=== PATIENT | female | born 1980 | race Caucasian/White ===

== ENCOUNTER 2018-05-17 15:07 | Observation (INO) ==
[2018-05-17] MEDS ORDERED: SODIUM CHLORIDE 0.9% 500 ML IV STA (15:43)
[2018-05-17] MEDS ORDERED: ONDANSETRON 4 MG/2 ML VIAL IV STA (15:43)
[2018-05-17 16:05] LABS: Basophils % 0.4 % (0.0-0.8); Eosinophils # 0.1 10*3/uL (0.0-0.87); Eosinophils % 0.8 % (0.00-10.9); Hematocrit 39.1 VOL% (35.7-47.0); Immature Granulocytes % 0.3 %; Immature Granulocytes Absolute 0.03 #; Lymphocytes # 3.2 10*3/uL (1.4-4.0); Lymphocytes % 32.5 % (21.3-54.2); Mean Corpuscular HGB Conc 33.2 GM/DL (32-36); Mean Corpuscular Hemoglobin 30 PG (27-34); Mean Corpuscular Volume 89.7 FL (87-102); Mean Platelet Volume 10.2 FL (9.6-12.0); Monocytes # 0.6 10*3/uL (0.11-0.8); Monocytes % 5.8 % (1.7-12.7); Neutrophils % 60.2 % (38.7-73.9); Platelet Count 322 T/CUMM (130-400); Red Blood Count 4.36 MC/CUMM (3.8-5.5)
[2018-05-17 16:20] LABS: INR 0.9; PT Patient Result 9.9 SECS
[2018-05-17 16:30] LABS: Alanine Aminotransferase 23 U/L (13-56); Alkaline Phosphatase 78 U/L (45-117); Aspartate Amino Transferase 16 U/L (0-37); Bilirubin,Total < 0.39 MG/DL (0.2-1.0); Blood Urea Nitrogen 8 MG/DL (7-18); Calcium 9.1 MG/DL (8.5-10.1); Glucose 89 MG/DL (74-106); Osmolality,Calculated 269.8 MOS/KG (273-304); Potassium 3.4 MMOL/L (3.5-5.1); Sodium 137 MMOL/L (136-145); Total Protein 8.3 G/DL (6.4-8.3); Troponin I < 0.015 NG/ML (0.00-0.045)
[2018-05-17 17:15] LABS: Sedimentation Rate-Westergren 20 MM/HR (0-20)
[2018-05-17 17:24] LABS: Apearance,Urine CLEAR (Clear); Bilirubin,Urine Negative (Negative); Blood, Urine Negative (Negative); Glucose,Urine (UA) Negative (Negative); Ketones,Urine Negative (Negative); Nitrite,Urine Negative (Negative); Protein,Urine Negative; RBC,Urine <1 /HPF (0-4); Urine Color Straw (Yellow); Urine Specific Gravity 1.005 (1.001-1.035); Urine Urobilinogen < 2.0 EU/DL (0.2-1.0)
[2018-05-17] MEDS ORDERED: ONDANSETRON 4 MG/2 ML VIAL IV PRN (18:38)
[2018-05-17] MEDS ORDERED: LACTULOSE 20 GM/30 ML UDCUP PO PRN (18:38)
[2018-05-17] MEDS ORDERED: DOCUSATE SODIUM 100 MG CAPSULE PO PRN (18:38)
[2018-05-17] MEDS ORDERED: ACETAMINOPHEN 325 MG TABLET PO PRN (18:38)
[2018-05-17] MEDS ORDERED: ENOXAPARIN 40 MG/0.4 ML SYRINGE SUBCUT SCH (21:00)
[2018-05-17] MEDS: SODIUM CHLORIDE 0.45% 1,000 ML IV SCH (21:18)
[2018-05-18 03:37] LABS: Basophils % 0.4 % (0.0-0.8); Eosinophils # 0.1 10*3/uL (0.0-0.87); Hematocrit 32.3 VOL% (35.7-47.0); Hemoglobin 10.4 GM/DL (12.0-16.0); Immature Granulocytes % 0.5 %; Immature Granulocytes Absolute 0.05 #; Lymphocytes # 3.4 10*3/uL (1.4-4.0); Lymphocytes % 30.5 % (21.3-54.2); Mean Corpuscular HGB Conc 32.2 GM/DL (32-36); Mean Corpuscular Hemoglobin 30 PG (27-34); Mean Corpuscular Volume 92.6 FL (87-102); Mean Platelet Volume 10.5 FL (9.6-12.0); Monocytes # 0.7 10*3/uL (0.11-0.8); Monocytes % 5.9 % (1.7-12.7); Neutrophils # 6.8 10*3/uL (1.4-7.4); Neutrophils % 61.7 % (38.7-73.9); Platelet Count 269 T/CUMM (130-400); Red Blood Count 3.49 MC/CUMM (3.8-5.5); Red Cell Distribution Width 14.2 % (9.3-17.3)
[2018-05-18 03:50] LABS: Alanine Aminotransferase 20 U/L (13-56); Albumin 3.1 G/DL (3.4-5.0); Alkaline Phosphatase 62 U/L (45-117); Aspartate Amino Transferase 10 U/L (0-37); Bilirubin,Total < 0.39 MG/DL (0.2-1.0); Blood Urea Nitrogen 10 MG/DL (7-18); Calcium 7.8 MG/DL (8.5-10.1); Glucose 90 MG/DL (74-106); Osmolality,Calculated 277.4 MOS/KG (273-304); Potassium 3.6 MMOL/L (3.5-5.1); Sodium 140 MMOL/L (136-145); Total Protein 6.4 G/DL (6.4-8.3)
[2018-05-18] MEDS: SODIUM CHLORIDE 0.45% 1,000 ML IV SCH (06:33)
[2018-05-18 08:00] LABS: Risk Ratio 3.98
[2018-05-18] MEDS ORDERED: PANTOPRAZOLE 40 MG TABLET PO SCH (09:00)
[2018-05-18] MEDS ORDERED: MELOXICAM 7.5 MG TABLET PO SCH (09:00)
[2018-05-18] MEDS ORDERED: KETOROLAC 30 MG/1 ML VIAL IV ONE (10:02)
[2018-05-18] MEDS ORDERED: CYCLOBENZAPRINE 10 MG TABLET PO ONE (10:05)
[2018-05-18] MEDS ORDERED: ACETAMINOPHEN 325 MG TABLET PO SCH (15:07)
[2018-05-18] MEDS ORDERED: GABAPENTIN 100 MG CAPSULE PO SCH (15:07)
[2018-05-18] MEDS ORDERED: NAPROXEN 500 MG TABLET PO ONE (15:07)
[2018-05-18 15:41] VITALS: BP 100/60
[2018-05-19] MEDS ORDERED: ASPIRIN EC 81 MG TABLET PO SCH (09:00)
== END 2018-05-18 17:25 | disposition home or self-care (01) ==
LOC: N.ED 15:07 → N.EDINP 15:07 → SUATTDRO 18:38 → N.TELEN 19:35
PROVIDERS: ADMIT Internal Medicine; ATTEND Family Medicine

== ENCOUNTER 2021-04-01 15:19 | Observation (INO) ==
[2021-04-01 16:29] LABS: Basophils % 0.6 % (0.0-0.8); Eosinophils # 0.1 10*3/uL (0.0-0.87); Eosinophils % 1.1 % (0.00-10.9); Hematocrit 39.8 VOL% (35.7-47.0); Hemoglobin 12.8 GM/DL (12.0-16.0); Immature Granulocytes % 0.6 %; Immature Granulocytes Absolute 0.03 #; Lymphocytes # 2.5 10*3/uL (1.4-4.0); Lymphocytes % 45.2 % (21.3-54.2); Mean Corpuscular HGB Conc 32.2 GM/DL (32-36); Mean Corpuscular Volume 92.1 FL (87-102); Mean Platelet Volume 10.1 FL (9.6-12.0); Monocytes % 5.2 % (1.7-12.7); Neutrophils % 47.3 % (38.7-73.9); Platelet Count 301 T/CUMM (130-400); Red Blood Count 4.32 MC/CUMM (3.8-5.5); Red Cell Distribution Width 13.4 % (9.3-17.3); White Blood Count 5.4 T/CUMM (4-12)
[2021-04-01 17:05] LABS: Albumin 4.3 G/DL (3.4-5.0); Bilirubin,Total 0.4 MG/DL (0.20-1.00); Calcium 9.2 MG/DL (8.5-10.1); Osmolality,Calculated 276.4 MOS/KG (273-304); Potassium 3.9 MMOL/L (3.5-5.1); Total Protein 8.1 G/DL (6.4-8.2)
[2021-04-01] MEDS ORDERED: SODIUM CHLORIDE 0.9% 1,000 ML IV STA (17:35)
[2021-04-01] MEDS ORDERED: KETOROLAC 30 MG/1 ML VIAL IM STA (18:27)
[2021-04-01] MEDS ORDERED: CYCLOBENZAPRINE 10 MG TABLET PO STA (18:28)
[2021-04-01] MEDS ORDERED: KETOROLAC 30 MG/1 ML VIAL IV STA (18:52)
[2021-04-01] MEDS ORDERED: GLUCAGON 1 MG VIAL IM PRN (23:28)
[2021-04-01] MEDS ORDERED: LABETALOL 20 MG/4 ML SYRINGE IV PRN (23:28)
[2021-04-01] MEDS ORDERED: DEXTROSE 50% 25 GM/50 ML VIAL IV PRN (23:28)
[2021-04-01] MEDS ORDERED: ACETAMINOPHEN 325 MG TABLET PO PRN (23:39)
[2021-04-02] MEDS: ENOXAPARIN 40 MG/0.4 ML SYRINGE SUBCUT SCH (00:46)
[2021-04-02] MEDS: SODIUM CHLORIDE 0.9% 1,000 ML IV SCH ×3 (00:47→21:41)
[2021-04-02 04:26] LABS: Basophils % 0.4 % (0.0-0.8); Eosinophils # 0.1 10*3/uL (0.0-0.87); Eosinophils % 1.1 % (0.00-10.9); Hemoglobin 11.4 GM/DL (12.0-16.0); Immature Granulocytes % 0.4 %; Immature Granulocytes Absolute 0.03 #; Lymphocytes # 3.5 10*3/uL (1.4-4.0); Mean Corpuscular HGB Conc 31.7 GM/DL (32-36); Mean Corpuscular Volume 92.3 FL (87-102); Mean Platelet Volume 10.5 FL (9.6-12.0); Monocytes % 5.6 % (1.7-12.7); Neutrophils % 48.5 % (38.7-73.9); Platelet Count 275 T/CUMM (130-400); Red Cell Distribution Width 13.8 % (9.3-17.3)
[2021-04-02 05:07] LABS: Calcium 8.5 MG/DL (8.5-10.1); Osmolality,Calculated 278.3 MOS/KG (273-304); Potassium 3.7 MMOL/L (3.5-5.1); Risk Ratio 5.47; Thyroid Stimulating Hormone 0.981 uIU/ml (0.358-3.74); VLDL Cholesterol 57.2 MG/DL
[2021-04-02] MEDS: PANTOPRAZOLE 40 MG TABLET PO SCH (09:29)
[2021-04-02] MEDS: ASPIRIN 325 MG TABLET PO SCH (09:29)
[2021-04-02 21:40] LABS: Barbiturates Screen,Urine Negative (Negative); Benzodiazepines Screen,Urine Negative (Negative); Cannabinoid Screen,Urine Positive (Negative); Opiate Screen,Urine Positive (Negative); Phencyclidine Screen,Urine Negative (Negative)
[2021-04-03] MEDS: ENOXAPARIN 40 MG/0.4 ML SYRINGE SUBCUT SCH (00:35)
[2021-04-03] MEDS: SODIUM CHLORIDE 0.9% 1,000 ML IV SCH ×2 (05:16→16:06)
[2021-04-03] MEDS: ASPIRIN 325 MG TABLET PO SCH (09:24)
[2021-04-03] MEDS: PANTOPRAZOLE 40 MG TABLET PO SCH (09:24)
[2021-04-03] MEDS ORDERED: CYANOCOBALAMIN 1000 MCG/1 ML VIAL SUBCUT ONE (10:14)
[2021-04-03] MEDS: ONDANSETRON 4 MG/2 ML VIAL IV PRN ×2 (10:27→19:12)
[2021-04-03] MEDS ORDERED: ACETAMINOPHEN 500 MG TABLET PO PRN (11:31)
[2021-04-03] MEDS: DULoxetine 30 MG CAPSULE PO SCH (21:03)
[2021-04-03] MEDS: CELECOXIB 200 MG CAPSULE PO SCH (21:03)
[2021-04-04] MEDS: SODIUM CHLORIDE 0.9% 1,000 ML IV SCH ×4 (00:20→21:52)
[2021-04-04] MEDS: ENOXAPARIN 40 MG/0.4 ML SYRINGE SUBCUT SCH ×2 (00:20→21:02)
[2021-04-04] MEDS: ONDANSETRON 4 MG/2 ML VIAL IV PRN ×4 (01:30→14:19)
[2021-04-04] MEDS: PANTOPRAZOLE 40 MG TABLET PO SCH (08:46)
[2021-04-04] MEDS ORDERED: tiZANidine 4 MG TABLET PO SCH (09:00)
[2021-04-04] MEDS ORDERED: ONDANSETRON 4 MG/2 ML VIAL IV ONE (09:00)
[2021-04-04] MEDS: DULoxetine 30 MG CAPSULE PO SCH ×2 (09:53→21:02)
[2021-04-04] MEDS: CELECOXIB 200 MG CAPSULE PO SCH (09:53)
[2021-04-04] MEDS ORDERED: ALUMINUM/MAGNES/SIMETH MAX STR 30 ML UDCUP PO ONE (16:39)
[2021-04-04] MEDS ORDERED: KETOROLAC 15 MG/1 ML VIAL IV PRN (18:48)
[2021-04-04] MEDS ORDERED: PROMETHAZINE INJ 12.5 MG in SODIUM CHLORIDE 0.9% 50 ML IV ONE (21:00)
[2021-04-04] MEDS: PANTOPRAZOLE 40 MG VIAL IV SCH (21:02)
[2021-04-05] MEDS: ONDANSETRON 4 MG/2 ML VIAL IV PRN ×3 (04:47→14:29)
[2021-04-05 05:32] LABS: Basophils % 0.4 % (0.0-0.8); Eosinophils % 0.1 % (0.00-10.9); Hematocrit 36.9 VOL% (35.7-47.0); Hemoglobin 11.9 GM/DL (12.0-16.0); Lymphocytes # 2.3 10*3/uL (1.4-4.0); Lymphocytes % 27.6 % (21.3-54.2); Mean Corpuscular HGB Conc 32.2 GM/DL (32-36); Mean Corpuscular Volume 90.7 FL (87-102); Mean Platelet Volume 10.2 FL (9.6-12.0); Monocytes % 4.8 % (1.7-12.7); Neutrophils % 66.9 % (38.7-73.9); Platelet Count 278 T/CUMM (130-400); Red Blood Count 4.07 MC/CUMM (3.8-5.5); Red Cell Distribution Width 13.2 % (9.3-17.3); White Blood Count 8.5 T/CUMM (4-12)
[2021-04-05 05:50] LABS: Calcium 8.6 MG/DL (8.5-10.1); Osmolality,Calculated 278.3 MOS/KG (273-304); Potassium 3.5 MMOL/L (3.5-5.1)
[2021-04-05] MEDS: SODIUM CHLORIDE 0.9% 1,000 ML IV SCH ×2 (08:52→21:25)
[2021-04-05] MEDS: DULoxetine 30 MG CAPSULE PO SCH ×2 (08:53→21:24)
[2021-04-05] MEDS ORDERED: PANTOPRAZOLE 40 MG VIAL IV SCH (09:00)
[2021-04-05] MEDS: PANTOPRAZOLE 40 MG VIAL IV SCH ×2 (09:08→21:24)
[2021-04-05] MEDS ORDERED: PROMETHAZINE INJ 12.5 MG in SODIUM CHLORIDE 0.9% 50 ML IV ONE (19:40)
[2021-04-05] MEDS: ENOXAPARIN 40 MG/0.4 ML SYRINGE SUBCUT SCH (21:24)
[2021-04-06] MEDS: SODIUM CHLORIDE 0.9% 1,000 ML IV SCH (05:02)
[2021-04-06] MEDS: ONDANSETRON 4 MG/2 ML VIAL IV PRN ×2 (05:34→12:01)
[2021-04-06 05:42] VITALS: BP 131/82
[2021-04-06 06:47] LABS: Calcium 8.6 MG/DL (8.5-10.1); Osmolality,Calculated 272.7 MOS/KG (273-304); Potassium 3.4 MMOL/L (3.5-5.1)
[2021-04-06] MEDS: DULoxetine 30 MG CAPSULE PO SCH (08:17)
[2021-04-06] MEDS: PANTOPRAZOLE 40 MG VIAL IV SCH (08:18)
[2021-04-06] MEDS ORDERED: ESTRADIOL 0.1 MG/24 HR TRANSDERM SCH (09:00)
== END 2021-04-06 14:47 | disposition home health service (06) ==
LOC: N.ED 15:19 → N.EDINP 15:19 → SUATTDRO 22:41 → N.EDINP 23:16 → N.TELES 23:37 → SUATTDRO 04-04 12:32
PROVIDERS: ADMIT Internal Medicine; ATTEND Internal Medicine

== ENCOUNTER 2021-10-28 04:12 | Inpatient (IN) ==
[2021-10-28 04:52] LABS: Basophils % 0.2 % (0.0-0.8); Eosinophils % 0.4 % (0.00-10.9); Hematocrit 38.3 VOL% (35.7-47.0); Hemoglobin 12.9 GM/DL (12.0-16.0); Immature Granulocytes % 0.6 %; Immature Granulocytes Absolute 0.05 #; Lymphocytes # 1.4 10*3/uL (1.4-4.0); Lymphocytes % 17.5 % (21.3-54.2); Mean Corpuscular HGB Conc 33.7 GM/DL (32-36); Mean Corpuscular Volume 88.7 FL (87-102); Mean Platelet Volume 9.8 FL (9.6-12.0); Monocytes # 0.8 10*3/uL (0.11-0.8); Monocytes % 9.3 % (1.7-12.7); Platelet Count 340 T/CUMM (130-400); Red Blood Count 4.32 MC/CUMM (3.8-5.5); Red Cell Distribution Width 13.2 % (9.3-17.3)
[2021-10-28] MEDS ORDERED: MORPHINE 2 MG/1 ML SYRINGE IV STA (04:52)
[2021-10-28] MEDS ORDERED: ONDANSETRON 4 MG/2 ML VIAL IV STA (04:52)
[2021-10-28] MEDS ORDERED: ASPIRIN 325 MG TABLET PO STA (04:52)
[2021-10-28] MEDS ORDERED: SODIUM CHLORIDE 0.9% 500 ML IV STA (04:52)
[2021-10-28] MEDS ORDERED: METOPROLOL TARTRATE 50 MG TABLET PO STA (04:53)
[2021-10-28 05:02] LABS: PT Patient Result 10.9 SECS (10.5-12.0); Partial Thromboplastin Time 32.2 SECS (23.8-32.1)
[2021-10-28 05:05] LABS: PT Patient Result 10.8 SECS (10.5-12.0)
[2021-10-28 05:18] LABS: Alanine Aminotransferase 19 U/L (13-56); Alkaline Phosphatase 100 U/L (45-117); Aspartate Amino Transferase 7 U/L (0-37); Bilirubin,Total < 0.39 MG/DL (0.20-1.00); Blood Urea Nitrogen 4 MG/DL (7-18); Calcium 9.5 MG/DL (8.5-10.1); Carbon Dioxide 23 MMOL/L (21-32); Chloride 107 MMOL/L (98-107); Glucose 115 MG/DL (74-106); Osmolality,Calculated 274.5 MOS/KG (273-304); Potassium 3.2 MMOL/L (3.5-5.1); Sodium 139 MMOL/L (136-145); Total Protein 8.5 G/DL (6.4-8.2)
[2021-10-28] MEDS ORDERED: POTASSIUM CHLORIDE 20 MEQ TABLET PO STA (05:21)
[2021-10-28 06:45] LABS: Risk Ratio 5.95
[2021-10-28] MEDS: SODIUM CHLORIDE 0.9% 1,000 ML IV SCH ×2 (07:00→20:48)
[2021-10-28 07:02] LABS: Bacteria,Urine Moderate /HPF (Few); RBC,Urine 1 /HPF (0-4); Squamous Epithelial Cell,Urine Occasional /HPF (0-10)
[2021-10-28 07:03] LABS: Bilirubin,Urine Negative (Negative); Blood, Urine Negative (Negative); Glucose,Urine (UA) Negative (Negative); Ketones,Urine Negative (Negative); Nitrite,Urine Negative (Negative); Protein,Urine Negative (Negative); Urine Appearance Clear (Clear); Urine Color Yellow (Yellow); Urine Specific Gravity < 1.005 (1.001-1.035); Urine Urobilinogen 0.2 eU/dL (<2.0)
[2021-10-28 07:52] LABS: Barbiturates Screen,Urine Negative (Negative); Benzodiazepines Screen,Urine Negative (Negative); Cannabinoid Screen,Urine Negative (Negative); Opiate Screen,Urine Positive (Negative); Phencyclidine Screen,Urine Negative (Negative)
[2021-10-28] MEDS ORDERED: METOPROLOL SUCCINATE XL 50 MG TABLET PO SCH (09:00)
[2021-10-28] MEDS: PANTOPRAZOLE 40 MG TABLET PO SCH (09:18)
[2021-10-28] MEDS: MORPHINE 2 MG/1 ML SYRINGE IV PRN (11:23)
[2021-10-28] MEDS: ONDANSETRON 4 MG/2 ML VIAL IV PRN (11:23)
[2021-10-28] MEDS: PROMETHAZINE 25 MG TABLET PO PRN (14:37)
[2021-10-28] MEDS: ATORVASTATIN 40 MG TABLET PO SCH (20:38)
[2021-10-28] MEDS: ACETAMINOPHEN 325 MG TABLET PO PRN (20:41)
[2021-10-29] MEDS: ONDANSETRON 4 MG/2 ML VIAL IV PRN ×4 (03:00→19:59)
[2021-10-29] MEDS ORDERED: LEVOFLOXACIN INJ 500 MG/100 ML PREMIX IV SCH (04:00)
[2021-10-29] MEDS: ACETAMINOPHEN 325 MG TABLET PO PRN ×2 (04:15→21:19)
[2021-10-29 05:03] LABS: Alanine Aminotransferase 17 U/L (13-56); Albumin 3.2 G/DL (3.4-5.0); Alkaline Phosphatase 79 U/L (45-117); Aspartate Amino Transferase 11 U/L (0-37); Bilirubin,Total < 0.39 MG/DL (0.20-1.00); Blood Urea Nitrogen 3 MG/DL (7-18); Calcium 8.3 MG/DL (8.5-10.1); Carbon Dioxide 22 MMOL/L (21-32); Chloride 111 MMOL/L (98-107); Glucose 97 MG/DL (74-106); Osmolality,Calculated 279.1 MOS/KG (273-304); Potassium 3.5 MMOL/L (3.5-5.1); Sodium 142 MMOL/L (136-145); Total Protein 6.9 G/DL (6.4-8.2)
[2021-10-29] MEDS ORDERED: IBUPROFEN 400 MG TABLET PO PRN (06:12)
[2021-10-29] MEDS ORDERED: ENOXAPARIN 40 MG/0.4 ML SYRINGE SUBCUT SCH (07:00)
[2021-10-29 08:06] LABS: Basophils % 0.2 % (0.0-0.8); Immature Granulocytes % 0.6 %; Immature Granulocytes Absolute 0.03 #; Lymphocytes # 1.1 10*3/uL (1.4-4.0); Lymphocytes % 23.2 % (21.3-54.2); Mean Corpuscular HGB Conc 32.7 GM/DL (32-36); Mean Corpuscular Volume 91.2 FL (87-102); Monocytes # 0.4 10*3/uL (0.11-0.8); Monocytes % 8.5 % (1.7-12.7); Neutrophils % 67.5 % (38.7-73.9); Red Blood Count 3.62 MC/CUMM (3.8-5.5); Red Cell Distribution Width 14.1 % (9.3-17.3)
[2021-10-29 08:09] LABS: White Blood Count 4.9 T/CUMM (4-12)
[2021-10-29 08:10] LABS: Hemoglobin 10.8 GM/DL (12.0-16.0); Platelet Count 241 T/CUMM (130-400)
[2021-10-29] MEDS: METOPROLOL SUCCINATE XL 50 MG TABLET PO SCH ×2 (09:01→21:19)
[2021-10-29] MEDS: PANTOPRAZOLE 40 MG TABLET PO SCH (09:01)
[2021-10-29] MEDS: POTASSIUM CHLORIDE 20 MEQ TABLET PO SCH (09:01)
[2021-10-29] MEDS: MORPHINE 2 MG/1 ML SYRINGE IV PRN ×2 (12:40→21:25)
[2021-10-29] MEDS: SODIUM CHLORIDE 0.9% 1,000 ML IV SCH ×2 (12:44→12:45)
[2021-10-29 13:12] LABS: Glucose,CSF 63 MG/DL (40-70)
[2021-10-29] MEDS ORDERED: MELATONIN 3 MG TABLET PO PRN (13:17)
[2021-10-29 13:22] LABS: Appearance,CSF Clear; Red Blood Cell,CSF < 1 C/CUMM; White Blood Cell,CSF 3 C/CUMM
[2021-10-29] MEDS: PROMETHAZINE 25 MG TABLET PO PRN (17:19)
[2021-10-29] MEDS: ASCORBIC ACID 500 MG TABLET PO SCH (21:18)
[2021-10-29] MEDS: ATORVASTATIN 40 MG TABLET PO SCH (21:19)
[2021-10-29] MEDS: FAMOTIDINE 20 MG TABLET PO SCH (21:19)
[2021-10-30] MEDS: MORPHINE 2 MG/1 ML SYRINGE IV PRN ×4 (02:41→23:10)
[2021-10-30] MEDS: ONDANSETRON 4 MG/2 ML VIAL IV PRN ×4 (02:41→23:10)
[2021-10-30] MEDS: SODIUM CHLORIDE 0.9% 1,000 ML IV SCH ×2 (04:37→15:43)
[2021-10-30 06:20] LABS: Basophils % 0.2 % (0.0-0.8); Hematocrit 34.2 VOL% (35.7-47.0); Immature Granulocytes % 0.4 %; Immature Granulocytes Absolute 0.02 #; Lymphocytes # 1.6 10*3/uL (1.4-4.0); Lymphocytes % 34.2 % (21.3-54.2); Mean Corpuscular HGB Conc 32.2 GM/DL (32-36); Mean Corpuscular Volume 93.2 FL (87-102); Mean Platelet Volume 10.3 FL (9.6-12.0); Monocytes # 0.3 10*3/uL (0.11-0.8); Monocytes % 5.4 % (1.7-12.7); Neutrophils % 59.8 % (38.7-73.9); Platelet Count 231 T/CUMM (130-400); Red Blood Count 3.67 MC/CUMM (3.8-5.5); Red Cell Distribution Width 14.1 % (9.3-17.3); White Blood Count 4.6 T/CUMM (4-12)
[2021-10-30 06:36] LABS: Calcium 8.4 MG/DL (8.5-10.1); Osmolality,Calculated 271.7 MOS/KG (273-304); Potassium 3.8 MMOL/L (3.5-5.1)
[2021-10-30 06:46] LABS: Platelet Estimate Normal
[2021-10-30] MEDS: FAMOTIDINE 20 MG TABLET PO SCH ×2 (09:00→20:15)
[2021-10-30] MEDS: METOPROLOL SUCCINATE XL 50 MG TABLET PO SCH ×2 (09:00→20:14)
[2021-10-30] MEDS: ZINC GLUCONATE 50 MG TABLET PO SCH (09:00)
[2021-10-30] MEDS: ASCORBIC ACID 500 MG TABLET PO SCH ×2 (09:00→20:20)
[2021-10-30] MEDS: CETIRIZINE 10 MG TABLET PO SCH (09:00)
[2021-10-30] MEDS: CHOLECALCIFEROL 1,000 UNIT TABLET PO SCH (09:00)
[2021-10-30] MEDS: POTASSIUM CHLORIDE 20 MEQ TABLET PO SCH (09:00)
[2021-10-30] MEDS: SODIUM CHLORIDE 0.45% 1,000 ML IV SCH (20:00)
[2021-10-30] MEDS: PROMETHAZINE 25 MG/1 ML VIAL IM PRN (20:05)
[2021-10-30] MEDS: ATORVASTATIN 40 MG TABLET PO SCH (20:20)
[2021-10-31] MEDS: SODIUM CHLORIDE 0.45% 1,000 ML IV SCH ×2 (02:38→12:08)
[2021-10-31] MEDS: MORPHINE 2 MG/1 ML SYRINGE IV PRN ×3 (03:24→20:24)
[2021-10-31] MEDS: ONDANSETRON 4 MG/2 ML VIAL IV PRN ×3 (03:25→20:24)
[2021-10-31 08:16] LABS: Basophils % 0.2 % (0.0-0.8); Hematocrit 34.4 VOL% (35.7-47.0); Hemoglobin 11.4 GM/DL (12.0-16.0); Immature Granulocytes % 0.2 %; Immature Granulocytes Absolute 0.01 #; Lymphocytes # 1.8 10*3/uL (1.4-4.0); Lymphocytes % 34.5 % (21.3-54.2); Mean Corpuscular HGB Conc 33.1 GM/DL (32-36); Mean Corpuscular Volume 90.1 FL (87-102); Mean Platelet Volume 9.7 FL (9.6-12.0); Monocytes # 0.2 10*3/uL (0.11-0.8); Monocytes % 4.7 % (1.7-12.7); Neutrophils % 60.4 % (38.7-73.9); Platelet Count 243 T/CUMM (130-400); Red Blood Count 3.82 MC/CUMM (3.8-5.5); Red Cell Distribution Width 13.2 % (9.3-17.3); White Blood Count 5.1 T/CUMM (4-12)
[2021-10-31 08:47] LABS: Blood Urea Nitrogen 6 MG/DL (7-18); Calcium 8.6 MG/DL (8.5-10.1); Carbon Dioxide 26 MMOL/L (21-32); Chloride 105 MMOL/L (98-107); Glucose 88 MG/DL (74-106); Osmolality,Calculated 266.1 MOS/KG (273-304); Potassium 3.7 MMOL/L (3.5-5.1); Sodium 135 MMOL/L (136-145)
[2021-10-31 08:50] LABS: Band Neutrophils 18 % (0-10); Lymphocytes 38 % (20-55); Platelet Estimate Normal; Total Cells Counted 100
[2021-10-31] MEDS: CHOLECALCIFEROL 1,000 UNIT TABLET PO SCH (09:02)
[2021-10-31] MEDS: POTASSIUM CHLORIDE 20 MEQ TABLET PO SCH (09:02)
[2021-10-31] MEDS: FAMOTIDINE 20 MG TABLET PO SCH ×2 (09:02→20:27)
[2021-10-31] MEDS: ZINC GLUCONATE 50 MG TABLET PO SCH (09:02)
[2021-10-31] MEDS: CETIRIZINE 10 MG TABLET PO SCH (09:02)
[2021-10-31] MEDS: ASCORBIC ACID 500 MG TABLET PO SCH ×2 (09:02→20:28)
[2021-10-31] MEDS: METOPROLOL SUCCINATE XL 50 MG TABLET PO SCH ×2 (09:02→20:27)
[2021-10-31 10:41] LABS: Specimen Source CSF
[2021-10-31 10:45] LABS: Epstein-Barr Virus Result Negative (Negative); Epstein-Barr Virus Source CSF
[2021-10-31] MEDS ORDERED: KETOROLAC 15 MG/1 ML VIAL IV ONE (11:30)
[2021-10-31] MEDS ORDERED: REMDESIVIR 200 MG in SODIUM CHLORIDE 0.9% 210 ML IV ONE (12:00)
[2021-10-31] MEDS: PROMETHAZINE 25 MG/1 ML VIAL IM PRN (12:02)
[2021-10-31] MEDS: methylPREDNISolone SOD SUC 40 MG/1 ML VIAL IV SCH ×2 (12:06→23:21)
[2021-10-31] MEDS ORDERED: VALPROIC ACID INJ 1,000 MG in SODIUM CHLORIDE 0.9% 100 ML IV ONE (13:30)
[2021-10-31] MEDS ORDERED: MAGNESIUM SULF RIDER 1 GM/100 ML PREMIX IV ONE (13:30)
[2021-10-31] MEDS: ATORVASTATIN 40 MG TABLET PO SCH (20:28)
[2021-11-01] MEDS: SODIUM CHLORIDE 0.45% 1,000 ML IV SCH ×3 (00:52→23:33)
[2021-11-01] MEDS: MORPHINE 2 MG/1 ML SYRINGE IV PRN ×3 (01:01→14:36)
[2021-11-01] MEDS: PROMETHAZINE 25 MG/1 ML VIAL IM PRN (01:01)
[2021-11-01 04:52] LABS: Hematocrit 33.6 VOL% (35.7-47.0); Hemoglobin 10.9 GM/DL (12.0-16.0); Immature Granulocytes % 0.8 %; Immature Granulocytes Absolute 0.02 #; Lymphocytes # 1.1 10*3/uL (1.4-4.0); Lymphocytes % 40.5 % (21.3-54.2); Mean Corpuscular HGB Conc 32.4 GM/DL (32-36); Mean Corpuscular Volume 89.6 FL (87-102); Mean Platelet Volume 9.9 FL (9.6-12.0); Monocytes # 0.1 10*3/uL (0.11-0.8); Monocytes % 3.8 % (1.7-12.7); Neutrophils % 54.9 % (38.7-73.9); Platelet Count 245 T/CUMM (130-400); Red Blood Count 3.75 MC/CUMM (3.8-5.5); Red Cell Distribution Width 13.1 % (9.3-17.3); White Blood Count 2.6 T/CUMM (4-12)
[2021-11-01 05:12] LABS: Blood Urea Nitrogen 9 MG/DL (7-18); Calcium 8.8 MG/DL (8.5-10.1); Carbon Dioxide 28 MMOL/L (21-32); Chloride 106 MMOL/L (98-107); Glucose 126 MG/DL (74-106); Osmolality,Calculated 275.7 MOS/KG (273-304); Potassium 4.4 MMOL/L (3.5-5.1); Sodium 138 MMOL/L (136-145)
[2021-11-01] MEDS: ONDANSETRON 4 MG/2 ML VIAL IV PRN ×2 (10:22→14:35)
[2021-11-01] MEDS: ZINC GLUCONATE 50 MG TABLET PO SCH (10:26)
[2021-11-01] MEDS: METOPROLOL SUCCINATE XL 50 MG TABLET PO SCH (10:26)
[2021-11-01] MEDS: ASCORBIC ACID 500 MG TABLET PO SCH ×2 (10:27→23:32)
[2021-11-01] MEDS: CHOLECALCIFEROL 1,000 UNIT TABLET PO SCH (10:28)
[2021-11-01] MEDS: FAMOTIDINE 20 MG TABLET PO SCH ×2 (10:28→23:32)
[2021-11-01] MEDS: CETIRIZINE 10 MG TABLET PO SCH (10:28)
[2021-11-01] MEDS: POTASSIUM CHLORIDE 20 MEQ TABLET PO SCH (10:28)
[2021-11-01] MEDS: methylPREDNISolone SOD SUC 40 MG/1 ML VIAL IV SCH ×2 (11:06→23:33)
[2021-11-01] MEDS: REMDESIVIR 100 MG in SODIUM CHLORIDE 0.9% 100 ML IV SCH (11:52)
[2021-11-01 12:13] LABS: West Nile Virus Ab, IgG, CSF Negative (Negative); West Nile Virus Ab, IgM, CSF Negative (Negative)
[2021-11-01 15:35] LABS: Ehrlichia Chaffeensis (HME)IgG <1:64 titer (<1:64)
[2021-11-01] MEDS: ZIPRASIDONE 20 MG/1 ML VIAL IM SCH (19:49)
[2021-11-01] MEDS: PROMETHAZINE 25 MG/1 ML VIAL IM SCH (19:49)
[2021-11-01] MEDS: DIVALPROEX ER 250 MG TABLET PO SCH (23:14)
[2021-11-01] MEDS: ATORVASTATIN 40 MG TABLET PO SCH (23:15)
[2021-11-02] MEDS: METOPROLOL SUCCINATE XL 50 MG TABLET PO SCH ×3 (00:28→23:55)
[2021-11-02] MEDS: SODIUM CHLORIDE 0.45% 1,000 ML IV SCH ×3 (05:47→23:30)
[2021-11-02 05:58] LABS: Basophils % 0.2 % (0.0-0.8); Hematocrit 36.8 VOL% (35.7-47.0); Immature Granulocytes % 0.5 %; Immature Granulocytes Absolute 0.03 #; Lymphocytes # 1.2 10*3/uL (1.4-4.0); Lymphocytes % 19.6 % (21.3-54.2); Mean Corpuscular HGB Conc 32.6 GM/DL (32-36); Mean Corpuscular Volume 90.4 FL (87-102); Mean Platelet Volume 10.2 FL (9.6-12.0); Monocytes # 0.2 10*3/uL (0.11-0.8); Monocytes % 3.9 % (1.7-12.7); Neutrophils % 75.8 % (38.7-73.9); Platelet Count 284 T/CUMM (130-400); Red Blood Count 4.07 MC/CUMM (3.8-5.5); Red Cell Distribution Width 13.2 % (9.3-17.3); White Blood Count 6.1 T/CUMM (4-12)
[2021-11-02 06:06] LABS: Calcium 8.9 MG/DL (8.5-10.1); Osmolality,Calculated 271.8 MOS/KG (273-304); Potassium 4.1 MMOL/L (3.5-5.1)
[2021-11-02] MEDS: CHOLECALCIFEROL 1,000 UNIT TABLET PO SCH (09:31)
[2021-11-02] MEDS: ASCORBIC ACID 500 MG TABLET PO SCH ×2 (09:31→23:55)
[2021-11-02] MEDS: POTASSIUM CHLORIDE 20 MEQ TABLET PO SCH (09:31)
[2021-11-02] MEDS: ZINC GLUCONATE 50 MG TABLET PO SCH (09:32)
[2021-11-02] MEDS: FAMOTIDINE 20 MG TABLET PO SCH ×2 (09:32→23:55)
[2021-11-02] MEDS: ZIPRASIDONE 20 MG/1 ML VIAL IM SCH ×2 (09:35→23:55)
[2021-11-02] MEDS: PROMETHAZINE 25 MG/1 ML VIAL IM SCH ×2 (09:36→23:30)
[2021-11-02] MEDS: CETIRIZINE 10 MG TABLET PO SCH (09:36)
[2021-11-02] MEDS: ONDANSETRON 4 MG/2 ML VIAL IV PRN (12:27)
[2021-11-02] MEDS: REMDESIVIR 100 MG in SODIUM CHLORIDE 0.9% 100 ML IV SCH (12:28)
[2021-11-02] MEDS: methylPREDNISolone SOD SUC 40 MG/1 ML VIAL IV SCH (14:57)
[2021-11-02] MEDS: DIVALPROEX ER 250 MG TABLET PO SCH (23:55)
[2021-11-02] MEDS: ATORVASTATIN 40 MG TABLET PO SCH (23:55)
[2021-11-03 04:44] LABS: Basophils % 0.2 % (0.0-0.8); Hematocrit 33.8 VOL% (35.7-47.0); Hemoglobin 11.1 GM/DL (12.0-16.0); Immature Granulocytes % 0.6 %; Immature Granulocytes Absolute 0.04 #; Lymphocytes # 3.6 10*3/uL (1.4-4.0); Lymphocytes % 55.6 % (21.3-54.2); Mean Corpuscular HGB Conc 32.8 GM/DL (32-36); Mean Corpuscular Volume 90.1 FL (87-102); Mean Platelet Volume 9.9 FL (9.6-12.0); Monocytes # 0.5 10*3/uL (0.11-0.8); Monocytes % 7.1 % (1.7-12.7); Neutrophils % 36.5 % (38.7-73.9); Platelet Count 234 T/CUMM (130-400); Red Blood Count 3.75 MC/CUMM (3.8-5.5); White Blood Count 6.5 T/CUMM (4-12)
[2021-11-03 05:06] LABS: Osmolality,Calculated 276.4 MOS/KG (273-304)
[2021-11-03 05:10] LABS: Band Neutrophils 1 % (0-10); Lymphocytes 49 % (20-55); Platelet Estimate Adequate; Total Cells Counted 100
[2021-11-03] MEDS ORDERED: POTASSIUM CHLORIDE 20 MEQ TABLET PO PRN (08:18)
[2021-11-03] MEDS ORDERED: DEXAMETHASONE 4 MG/1 ML VIAL IV SCH (09:00)
[2021-11-03] MEDS: CHOLECALCIFEROL 1,000 UNIT TABLET PO SCH (10:20)
[2021-11-03] MEDS: ZINC GLUCONATE 50 MG TABLET PO SCH (10:20)
[2021-11-03] MEDS: METOPROLOL SUCCINATE XL 50 MG TABLET PO SCH (10:21)
[2021-11-03] MEDS: ASCORBIC ACID 500 MG TABLET PO SCH (10:21)
[2021-11-03] MEDS: FAMOTIDINE 20 MG TABLET PO SCH (10:21)
[2021-11-03] MEDS: CETIRIZINE 10 MG TABLET PO SCH (10:22)
[2021-11-03] MEDS: ZIPRASIDONE 20 MG/1 ML VIAL IM SCH (10:23)
[2021-11-03] MEDS: PROMETHAZINE 25 MG/1 ML VIAL IM SCH (10:23)
[2021-11-03] MEDS: POTASSIUM CHLORIDE 20 MEQ TABLET PO SCH (10:30)
[2021-11-03] MEDS: ONDANSETRON 4 MG/2 ML VIAL IV PRN (10:40)
[2021-11-03 11:58] VITALS: BP 122/83
[2021-11-03] MEDS: REMDESIVIR 100 MG in SODIUM CHLORIDE 0.9% 100 ML IV SCH (12:04)
== END 2021-11-03 15:53 | disposition home or self-care (01) | DRG 179 ==
LOC: SUATTDRO → N.ED 04:12 → N.EDINP 04:12 → N.5E 15:39 → SUATTDRO 10-29 11:27
PROVIDERS: ADMIT Internal Medicine; ATTEND Internal Medicine

== ENCOUNTER 2022-05-16 19:33 | Observation (INO) ==
[2022-05-16] MEDS ORDERED: diphenhydrAMINE 50 MG/1 ML VIAL IV STA (20:24)
[2022-05-16] MEDS ORDERED: PROCHLORPERAZINE 10 MG/2 ML VIAL IV ONE (20:24)
[2022-05-16] MEDS ORDERED: ASPIRIN 325 MG TABLET PO STA (20:24)
[2022-05-16] MEDS ORDERED: SODIUM CHLORIDE 0.9% 1,000 ML IV STA (20:24)
[2022-05-16] MEDS ORDERED: LORazepam 2 MG/1 ML VIAL IV STA (20:24)
[2022-05-16 20:33] LABS: Basophils % 0.2 % (0.0-0.8); Hematocrit 44.8 VOL% (35.7-47.0); Hemoglobin 14.1 GM/DL (12.0-16.0); Immature Granulocytes % 1.2 %; Lymphocytes # 1.5 10*3/uL (1.4-4.0); Lymphocytes % 17.7 % (21.3-54.2); Mean Corpuscular HGB Conc 31.5 GM/DL (32-36); Mean Corpuscular Volume 94.1 FL (87-102); Mean Platelet Volume 9.8 FL (9.6-12.0); Monocytes # 0.1 10*3/uL (0.11-0.8); Monocytes % 1.2 % (1.7-12.7); Neutrophils % 79.7 % (38.7-73.9); Platelet Count 366 T/CUMM (130-400); Red Blood Count 4.76 MC/CUMM (3.8-5.5); Red Cell Distribution Width 14.2 % (9.3-17.3); White Blood Count 8.6 T/CUMM (4-12)
[2022-05-16 20:42] LABS: INR 0.9
[2022-05-16 20:57] LABS: Alanine Aminotransferase 26 U/L (13-56); Albumin 4.5 G/DL (3.4-5.0); Alkaline Phosphatase 89 U/L (45-117); Aspartate Amino Transferase 11 U/L (0-37); Bilirubin,Total < 0.39 MG/DL (0.20-1.00); Blood Urea Nitrogen 8 MG/DL (7-18); Calcium 10.2 MG/DL (8.5-10.1); Carbon Dioxide 25 MMOL/L (21-32); Chloride 103 MMOL/L (98-107); Glucose 162 MG/DL (74-106); Osmolality,Calculated 280.4 MOS/KG (273-304); Potassium 4.2 MMOL/L (3.5-5.1); Sodium 140 MMOL/L (136-145); Total Protein 9.2 G/DL (6.4-8.2)
[2022-05-16] MEDS ORDERED: METOPROLOL TARTRATE 5 MG/5 ML VIAL IV STA (21:01)
[2022-05-16] MEDS ORDERED: METOPROLOL TARTRATE 5 MG/5 ML VIAL IV ONE (21:01)
[2022-05-16 22:28] LABS: Bacteria,Urine Many /HPF (Few); RBC,Urine 1 /HPF (0-4); Squamous Epithelial Cell,Urine Occasional /HPF (0-10)
[2022-05-16 22:29] LABS: Bilirubin,Urine Negative (Negative); Blood, Urine Negative (Negative); Glucose,Urine (UA) Negative (Negative); Ketones,Urine Negative (Negative); Nitrite,Urine Negative (Negative); Protein,Urine Negative (Negative); Urine Appearance Clear (Clear); Urine Color Yellow (Yellow); Urine Specific Gravity 1.015 (1.001-1.035); Urine Urobilinogen 0.2 eU/dL (<2.0); Urine pH 8.5 (4.5-8.0)
[2022-05-16 22:45] LABS: Barbiturates Screen,Urine Negative (Negative); Benzodiazepines Screen,Urine Negative (Negative); Cannabinoid Screen,Urine Negative (Negative); Opiate Screen,Urine Negative (Negative); Phencyclidine Screen,Urine Negative (Negative)
[2022-05-16] MEDS ORDERED: oxyCODONE/ACETAMINOPHEN 5-325 MG TABLET PO STA (22:57)
[2022-05-17] MEDS ORDERED: hydrALAZINE 20 MG/1 ML VIAL IV PRN (00:18)
[2022-05-17] MEDS ORDERED: ONDANSETRON 4 MG/2 ML VIAL IV PRN (00:18)
[2022-05-17] MEDS ORDERED: MORPHINE 2 MG/1 ML SYRINGE IV PRN (00:18)
[2022-05-17] MEDS ORDERED: diphenhydrAMINE CAP 25 MG CAPSULE PO PRN (00:18)
[2022-05-17] MEDS ORDERED: NICOTINE 21 MG/24 HR PATCH TRANSDERM PRN (00:18)
[2022-05-17] MEDS ORDERED: ACETAMINOPHEN 325 MG TABLET PO PRN (00:18)
[2022-05-17] MEDS ORDERED: ZALEPLON 5 MG CAPSULE PO PRN (00:18)
[2022-05-17] MEDS ORDERED: guaiFENesin/DM ER 600-30 MG TABLET PO PRN (00:18)
[2022-05-17 05:53] LABS: Basophils % 0.2 % (0.0-0.8); Eosinophils % 0.1 % (0.00-10.9); Hematocrit 35.4 VOL% (35.7-47.0); Hemoglobin 11.6 GM/DL (12.0-16.0); Immature Granulocytes % 0.4 %; Immature Granulocytes Absolute 0.04 #; Lymphocytes # 3.3 10*3/uL (1.4-4.0); Lymphocytes % 34.5 % (21.3-54.2); Mean Corpuscular HGB Conc 32.8 GM/DL (32-36); Mean Corpuscular Volume 93.7 FL (87-102); Mean Platelet Volume 9.6 FL (9.6-12.0); Monocytes # 0.5 10*3/uL (0.11-0.8); Monocytes % 5.2 % (1.7-12.7); Neutrophils % 59.6 % (38.7-73.9); Platelet Count 294 T/CUMM (130-400); Red Blood Count 3.78 MC/CUMM (3.8-5.5); Red Cell Distribution Width 14.4 % (9.3-17.3); White Blood Count 9.6 T/CUMM (4-12)
[2022-05-17 06:34] LABS: Calcium 9.2 MG/DL (8.5-10.1); Osmolality,Calculated 278.3 MOS/KG (273-304); Potassium 3.9 MMOL/L (3.5-5.1)
[2022-05-17] MEDS ORDERED: METOPROLOL TARTRATE 50 MG TABLET PO SCH (09:00)
[2022-05-17] MEDS ORDERED: PANTOPRAZOLE 40 MG TABLET PO SCH (09:00)
[2022-05-17] MEDS ORDERED: ASCORBIC ACID 500 MG TABLET PO SCH (09:00)
[2022-05-17] MEDS ORDERED: CETIRIZINE 10 MG TABLET PO SCH (09:00)
[2022-05-17] MEDS ORDERED: DEXAMETHASONE INJ 10 MG in SODIUM CHLORIDE 0.9% 50 ML IV ONE (10:02)
[2022-05-17] MEDS ORDERED: METOCLOPRAMIDE 10 MG/2 ML VIAL IV STA (10:24)
[2022-05-17] MEDS ORDERED: diphenhydrAMINE 50 MG/1 ML VIAL IV STA (10:24)
[2022-05-17] MEDS ORDERED: DEXAMETHASONE 10 MG/1 ML VIAL IV ONE (10:30)
[2022-05-17 11:37] LABS: % Iron Saturation 12.2 % (18-50); Ferritin 32.6 ng/mL (8-252)
[2022-05-17 11:44] LABS: Hemoglobin 11.7 GM/DL (12.0-16.0)
[2022-05-17 13:26] VITALS: BP 113/85
[2022-05-17] MEDS ORDERED: ENOXAPARIN 40 MG/0.4 ML SYRINGE SUBCUT SCH (21:00)
[2022-05-17] MEDS ORDERED: ATORVASTATIN 40 MG TABLET PO SCH (21:00)
== END 2022-05-17 13:21 | disposition home or self-care (01) ==
LOC: N.ED 19:33 → N.EDINP 19:33
PROVIDERS: ADMIT Family Medicine; ATTEND Family Medicine